=== PATIENT | male | born 1950 | race Caucasian/White ===

== ENCOUNTER 2016-12-29 12:06 | Outpatient (CLI) | payer MEDICARE ==
--- NOTE | 2016-12-29 15:22 | CT ---
CT THORAX WITHOUT IV CONTRAST: DATE: 12/29/16. HISTORY: Malignant neoplasm left lower lobe. Left upper lobectomy by reported history. Left lung malignant n eoplasm. COMPARISON: PET CT examination 12/25/14. FINDINGS: There are postsurgical changes of the left hemithorax likely related to patient's reported history of left upper lobectomy. Previously seen left upper lobe pulmonary nodule/mass is not visualized on th is exam. There is no discrete pulmonary nodule or mass seen within the lungs bilaterally. There is a large bulky parenchymal calcification in the anteromedial left upper lobe measuring 1.9 cm which may represent a large calcified granuloma. No pleural effusion is seen. Calcified left hilar as well as mediastinal lymph nodes are visualized. Vascular calcifications are noted in the coronary arteries as well as involving the thoracic aorta. Visualized upper abdomen demonstrates calcified granulomata in the spleen and liver. No discrete nodule is seen involving either adrenal gland. Degenerative changes are noted in the spine. No lytic or sclerotic osseous lesion is appreciated. IMPRESSION: 1. Postsurgical changes related to left upper lobectomy. The previously noted left upper lobe pulmo nary nodule/mass is no longer seen. 2. No noncalcified pulmonary nodule or mass is seen throughout the lungs bilaterally. 3. No evidence of lymphadenopathy. 4. Evidence of prior granulomatous disease. POS: [facility]
== END 2016-12-29 12:07 | disposition home or self-care (01) ==
LOC: CT 12:06
PROVIDERS: ATTEND Thoracic Surgery (Cardiothoracic Vascular Surgery)
DX: C34.32 Malignant neoplasm of lower lobe, left bronchus or lung (principal); D71 Functional disorders of polymorphonuclear neutrophils; Z98.890 Other specified postprocedural states; Z90.2 Acquired absence of lung [part of]
CPT/HCPCS: 71250

== ENCOUNTER 2017-06-28 12:54 | Outpatient (CLI) | payer MEDICARE ==
--- NOTE | 2017-06-28 15:05 | RAD ---
CHEST PA AND LATERAL: HISTORY: A 66-year-old male with a history of malignant neoplasm of the lower lobe left lung. COMPARISON: 08/25/16. FINDINGS: Some volume loss in the left chest consistent with prior lobectomy. Old granuloma calcification in t he left lung. Atherosclerosis of the aorta with some ectasia. No confluent pneumonia, overt edema, or pleural effusion. IMPRESSION: Postoperative changes left chest. Atherosclerosis and old granulomatous disease. Stable from prior study. No acute process. POS: [facility]
== END 2017-06-28 12:55 | disposition home or self-care (01) ==
LOC: RAD 12:54
PROVIDERS: ATTEND Thoracic Surgery (Cardiothoracic Vascular Surgery)
DX: C34.32 Malignant neoplasm of lower lobe, left bronchus or lung (principal); I25.10 Atherosclerotic heart disease of native coronary artery without angina pectoris; L92.9 Granulomatous disorder of the skin and subcutaneous tissue, unspecified; Z98.890 Other specified postprocedural states
CPT/HCPCS: 71046

== ENCOUNTER 2017-12-21 12:40 | Outpatient (CLI) | payer MEDICARE ==
--- NOTE | 2017-12-21 13:43 | RAD ---
PA AND LATERAL CHEST: HISTORY: Dyspnea. COMPARISON: 06/28/2017 FINDINGS: Volume loss in the left hemithorax is consistent with a previous lobectomy. Old granuloma in the lef t lung is again seen. The heart size is normal. The aorta is tortuous. No focal areas of consolida tion, pneumothoraces, or pleural effusions are identified. There are degenerative changes in the spi ne. IMPRESSION: Stable examination. No acute process. POS: [facility]
== END 2017-12-21 12:41 | disposition home or self-care (01) ==
LOC: RAD 12:40
PROVIDERS: ATTEND Thoracic Surgery (Cardiothoracic Vascular Surgery)
DX: C34.32 Malignant neoplasm of lower lobe, left bronchus or lung (principal)
CPT/HCPCS: 71046

== ENCOUNTER 2018-06-21 10:43 | Outpatient (CLI) | payer MEDICARE ==
--- NOTE | 2018-06-21 11:58 | RAD ---
EXAM: CHEST TWO VIEWS: History: Malignant neoplasm. Comparison: 12-21-17 FINDINGS: Post-operative changes on the left. Old granulomatous disease. Heart size is within normal limits. No confluent pneumonia, overt edema, or pleural effusion. IMPRESSION: Stable post-operative changes on the left. Old granulomatous disease. Atherosclerosis of the aorta. N o significant new process. POS: [facility]
== END 2018-06-21 10:44 | disposition home or self-care (01) ==
LOC: RAD 10:43
PROVIDERS: ATTEND Thoracic Surgery (Cardiothoracic Vascular Surgery)
DX: C34.32 Malignant neoplasm of lower lobe, left bronchus or lung (principal); I70.0 Atherosclerosis of aorta; Z98.890 Other specified postprocedural states
CPT/HCPCS: 71046

== ENCOUNTER 2018-12-20 12:43 | Outpatient (CLI) | payer MEDICARE ==
--- NOTE | 2018-12-20 13:02 | RAD ---
EXAM: Two views chest PROVIDED CLINICAL HISTORY: History of left upper lobectomy 4 years ago. Follow-up evaluation COMPARISON: 06/21/2018 FINDINGS: Postoperative changes left hemithorax are again noted. Cardiac silhouette is stable in size. Pulmonar y vasculature is within normal limits. The calcified granuloma overlying the left hilar region is again seen and stable. Lungs otherwise appear clear. Degenerative changes are again seen in the spine . No other interval change when compared to the prior exam. IMPRESSION: Stable postoperative changes left hemithorax. Chest is stable when compared to the prior exam, no acu te cardiopulmonary process is identified.
== END 2018-12-20 12:44 | disposition home or self-care (01) ==
LOC: RAD 12:43
PROVIDERS: ATTEND Thoracic Surgery (Cardiothoracic Vascular Surgery)
DX: C34.32 Malignant neoplasm of lower lobe, left bronchus or lung (principal); Z98.890 Other specified postprocedural states
CPT/HCPCS: 71046

== ENCOUNTER 2019-12-19 11:26 | Outpatient (CLI) | payer MEDICARE ==
--- NOTE | 2019-12-19 12:08 | RAD ---
XR Chest Pa Lat STANDARD History: Malignant neoplasm lower lung Comparison: Chest radiograph 2019 Findings: Similar appearance of the lingular calcified granuloma. Few calcified left hilar lymph node s. No underlying left lung mass. Post treatment changes left upper lobe. No confluent airspace consolidation, pneumothorax or effusion. Moderate degenerative disease of both acromioclavicular joints. Impression: No evidence for disease recurrence nor acute intrathoracic abnormality.
== END 2019-12-19 11:27 | disposition home or self-care (01) ==
LOC: BICRAD 11:26
PROVIDERS: ATTEND Thoracic Surgery (Cardiothoracic Vascular Surgery)
DX: C34.32 Malignant neoplasm of lower lobe, left bronchus or lung (principal)
CPT/HCPCS: 71046

== ENCOUNTER 2020-05-09 09:01 | Outpatient (CLI) | payer MEDICARE ==
[2020-05-09 11:25] LABS: #Basophils 0.1 10x3/uL (0.0-0.2); #Eosinphils 0.1 10x3/uL (0.0-0.5); #Monocytes 0.7 10x3/uL (0.0-1.1); #Neutrophils 3.5 10x3/uL (1.5-8.4); %Basophils 0.7 % (0.0-2.0); %Eosinophils 1.2 % (0.0-6.0); %Lymphocytes 40.9 % (18.0-47.0); %Monocytes 9.8 % (0.0-10.0); %Neutrophils 46.9 % (40.0-75.0); Hemoglobin 14.5 g/dL (13.5-17.5); Mean Corpuscular HGB CONC 33.2 g/dL (32.0-36.0); Mean Corpuscular Hemoglobin 31.8 pg (27.0-33.0); Mean Corpuscular Volume 95.8 fl (81.2-95.1); Mean Platelet Volume 10.6 fl (7.4-10.4); Platelet Count 285 10x3/uL (150-450); RBC Distribution Width 13.2 % (11.5-14.5); Red Blood Cell (RBC) Count 4.56 10x6/uL (4.32-5.72); White Blood Cell (WBC) Count 7.5 10x3/uL (3.5-10.5)
[2020-05-09 11:51] LABS: ALT (SGPT) 21 U/L (8-55); AST (SGOT) 17 U/L (5-34); Albumin 4.5 g/dL (3.4-4.8); Alkaline Phosphatase 63 U/L (40-110); Anion Gap 12 mmol/L (10-20); BUN (Urea Nitrogen) 20 mg/dL (8.4-25.7); Bilirubin, Total 0.6 mg/dL (0.2-1.2); Calc. Creatinine Clearance 0 mL/min (70-130); Calcium 9.6 mg/dL (7.8-10.44); Carbon Dioxide 28 mmol/L (23-31); Chloride 104 mmol/L (98-107); Globulin 2.9 g/dL (2.4-3.5); Glucose 114 mg/dL (83-110); Potassium 5.1 mmol/L (3.5-5.1); Protein, Total 7.4 g/dL (5.8-8.1); Sodium 139 mmol/L (136-145)
[2020-05-09 17:59] LABS: SARS-CoV-2 PCR by NAA Not Detected (NotDetected)
== END 2020-05-09 09:02 | disposition home or self-care (01) ==
LOC: LABBT 09:01
PROVIDERS: ATTEND Internal Medicine Cardiovascular Disease
DX: Z01.812 Encounter for preprocedural laboratory examination (principal); Z20.822 Contact with and (suspected) exposure to COVID-19
CPT/HCPCS: 80053; 85025; U0003; U0005; 87635

== ENCOUNTER 2020-05-14 05:48 | Day surgery (SDC) | payer MEDICARE ==
[2020-05-13 09:08] VITALS: BMI 34.4
[2020-05-14] MEDS ORDERED: Midazolam HCl 2 mg/2 ml Vial ONE (07:16)
[2020-05-14] MEDS ORDERED: Fentanyl 100 MCG/2 ML VIAL ONE (07:16)
[2020-05-14] MEDS ORDERED: Heparin 10,000 UNITS/ 10 ML VIAL ONE (08:23)
[2020-05-14] MEDS ORDERED: hydrALAZINE 20 MG/ML VIAL ONE (08:24)
[2020-05-14] MEDS ORDERED: Iopamidol 370 76% 100 ML VIAL ONE (10:44)
== END 2020-05-14 14:10 | disposition home or self-care (01) ==
LOC: CCL 05:48
PROVIDERS: ATTEND Internal Medicine Cardiovascular Disease
PROC: 4A023N8 Measurement of Cardiac Sampling and Pressure, Bilateral, Percutaneous Approach (ICD-10-PCS; principal; 2020-05-14)
PROC: B2111ZZ Fluoroscopy of Multiple Coronary Arteries using Low Osmolar Contrast (ICD-10-PCS; 2020-05-14)
DX: I25.10 Atherosclerotic heart disease of native coronary artery without angina pectoris (principal); I71.9 Aortic aneurysm of unspecified site, without rupture; I77.1 Stricture of artery; I35.0 Nonrheumatic aortic (valve) stenosis; I10 Essential (primary) hypertension; E78.5 Hyperlipidemia, unspecified; Z85.118 Personal history of other malignant neoplasm of bronchus and lung; Z85.46 Personal history of malignant neoplasm of prostate; Z86.73 Personal history of transient ischemic attack (TIA), and cerebral infarction without residual deficits; Z87.891 Personal history of nicotine dependence; Z79.82 Long term (current) use of aspirin; Z79.899 Other long term (current) drug therapy; Z88.5 Allergy status to narcotic agent; Z91.048 Other nonmedicinal substance allergy status
CPT/HCPCS: 76942; 85347; 93005; 93010; 93460; 93561; 93567; 93571; 99152; 99153; C1769; J0153; J0360; J1644; J2250; J3010; Q9967